=== PATIENT | female | born 1980 | race Hispanic/Latino ===

== ENCOUNTER → 2024-04-16 | Outpatient (CLI) | payer OTHER ==
--- NOTE | 2024-04-17 13:47 | HMCSR ---
APPROVED REPORT EXAM: Two-dimensional and M-mode echocardiogram with Doppler and color Doppler. INDICATION ICD: Chest pain R07.9 2D Dimensions RVDd3.6 cmLVEF(%)68.3 (>50%)LVED Vol(simp.)140.0 mL IVSd0.9 (0.7-1.1cm)FS(%)39 %LVES Vol(simp.)59.0 mL LVDd5.4 (3.8-5.6cm)LA (2D)4.1 (1.6-4.0cm)LVEF(%, simp.)58 % PWd0.9 (0.7-1.1cm)Ao Root(2D)3.6 (2.0-3.7cm)LA ESV INDEX (BP)20.86 mL/m2 LVDs3.3 (2.5-4.0cm)LVOT diam2.2 (1.8-2.4cm) IVC diam1.4 cm Aortic Valve AoV Vmax1.1 m/Alvino Peak GR5.1 mmHgLVOT Vmax1.0 m/s AoV VTI0.2 mAo Mean GR3.7 mmHgLVOT VTI0.18 m CLARA (VMAX)3.5 cm2AVA (VTI) 3.5 cm2 Mitral Valve MV E Vmax49.7 cm/sDECEL Osmm919 ms MV A Vmax70.9 cm/sP 1/2 T41 ms E/A ratio0.7MVA (PHT)5.4 cm2 TDI E/E' Medial4.3E/E' Lateral5.9 Pulmonary Valve PV Vmax0.7 m/sPV VTI0.14 mPV Mean GR1 mmHg PV Peak GR1.9 mmHg Tricuspid Valve TR Vmax1.4 m/sRAP (EST) 3 [id number] mmHg TR Peak GR8.0 mmHg Left Ventricle Left ventricular cavity size is normal. There is normal left ventricular wall thickness. LVEF is >55% . The left ventricular diastolic function is normal. Right Ventricle The right ventricle is normal size. The right ventricular systolic function is normal. Atria The left atrium size is normal. The right atrium size is normal. Aortic Valve Aortic valve is trileaflet. Aortic valve leaflets are sclerotic but open well. No aortic regurgitatio n is present. There is no aortic valvular stenosis. Mitral Valve Mitral valve leaflets are sclerotic but open well. There is trace mitral valve regurgitation noted. T here is no mitral valve stenosis. Tricuspid Valve The tricuspid valve leaflets appear normal. There is trace tricuspid regurgitation. Pulmonic Valve Pulmonic valve is not well visualized. There is no pulmonic valvular regurgitation. Great Vessels Aortic root is within normal limits. IVC is normal in size and collapses >50% with inspiration. Pericardium No pericardial effusion. Other Information Quality : Fair Technically limited study due to body habitus. Conclusion Left ventricular cavity size is normal. LVEF is >55%. The left ventricular diastolic function is normal. The right ventricular systolic function is normal. Both atria are normal in size. No hemodynamically significant valvular abnormalities. No pericardial effusion.
== END | disposition home or self-care (01) ==
LOC: SHCH 08:19 → EDUNIT# 08:30
PROVIDERS: ATTEND Student in an Organized Health Care Education/Training Program
DX: I08.0 Rheumatic disorders of both mitral and aortic valves (principal); R07.9 Chest pain, unspecified
CPT/HCPCS: 93306